=== PATIENT | male | born 1990 | race Caucasian/White ===

== ENCOUNTER 2020-10-14 18:42 | Emergency (ER) | payer SELFPAY ==
[~2020-10-14] VITALS: Ht 185.4 cm; Wt 82.6 kg
[2020-10-14 18:44] VITALS: BP 146/98
== END 2020-10-14 18:49 | disposition left against medical advice (07) ==
LOC: EDBD 18:42 → ER 18:42
DX: T40.411A Poisoning by fentanyl or fentanyl analogs, accidental (unintentional), initial encounter (principal); Y92.89 Other specified places as the place of occurrence of the external cause; Z53.21 Procedure and treatment not carried out due to patient leaving prior to being seen by health care provider